=== PATIENT | male | born 1985 | race Caucasian/White ===

== ENCOUNTER → 2017-09-09 | Outpatient (CLI) | payer OTHER ==
[~2017-09-09] MED LIST: CIPRO250 M1 PO; CIPROFLOXACIN500 M1 PO; DIAZEPAM 5 MG5 M1 OR; FLOMAX0.4 MG PO; NORCO 5-325 TA1 EACH PO; PERCOCET 5-3251 EACH PO; TAMSULOSIN HCL0.4 MG PO; ZOFRAN ODT4 MG PO
== END ==
LOC: M.ULTRA 07:01
DX: K76.0 Fatty (change of) liver, not elsewhere classified (principal)